=== PATIENT | female | born 1990 | race Caucasian/White ===

== ENCOUNTER 2022-01-10 13:20 | Emergency (ER) | payer OTHER, SELFPAY ==
--- NOTE | 2022-01-10 13:24 | ED.URI ---
HPI - URI/Sore Throat General Chief Complaint: Upper Respiratory Infection Stated Complaint: Cough,Congestion,Fatigue,Sore Throat Time Seen by Provider: 01/10/22 13:52 Source: patient and RN notes reviewed Mode of arrival: ambulatory Limitations: no limitations History of Present Illness HPI Narrative: 31 year old female presents with concern for sore throat that started this morning. Reports over last several days she has had fever, cough, some congestion. She swollen lymph nodes of headache. MD elicited complaint: sore throat Related Data Allergies Allergy/AdvReac Type Severity Reaction Status Date / Time Penicillins Allergy Unknown Verified 01/10/22 13:51 Review of Systems Review of Systems: CONSTITUTIONAL: Reports malaise, fever. EYES: Denies visual changes, redness, or discharge. ENT: Reports rhinorrhea, congestion, and sore throat. CARDIOVASCULAR: Denies chest pain, palpitations, or edema. RESPIRATORY: Reports cough. Denies dyspnea. GASTROINTESTINAL: Denies abdominal pain, nausea, vomiting, diarrhea SKIN: Denies rash or itching. MUSCULOSKELETAL: Denies myalgia. NEUROLOGIC: Reports headache. All systems reviewed & are unremarkable except as noted in HPI and below PMFSH Comments At time of signature, agree with nursing past medical, surgical, social and family history. There is no relevant family history pertinent to the presenting complaint Exam Narrative: GENERAL: Nontoxic-appearing and in no acute distress. HEAD: Normocephalic EYES: PERRLA, conjunctivae clear ENT: Nares clear. Mucous membranes moist. TM pearly pete with dull light reflex bilaterally; no tragal tenderness. Oropharynx erythematous without lesions. Tonsils not enlarged and without exudate, no drooling, no hoarseness, no trismus, uvula midline. NECK: Supple. No lymphadenopathy CHEST: Clear to auscultation, breath sounds equal. No wheezing, rhonchi, rales, or stridor. No respiratory distress, speaks in full sentences. HEART: Regular rate and rhythm. No murmur heard. SKIN: Warm, dry, no rash. NEURO: Alert and oriented x3. PSYCH: Normal mood and affect Course Course Emergency Course: Patient does not have type 1 IgE mediated reaction to penicillin Patient is aware of diagnosis, understands and agrees to treatment plan. Anticipatory guidance given. Patient agrees to follow-up as directed and is aware of reasons to seek care at the emergency department. Portions of this record may have been created with voice recognition software Level of Care: Express Care Visit Vital Signs Vital signs: Reviewed. MDM - URI/Sore Throat MDM Narrative Medical decision making narrative: Differential diagnosis considered: Bourgeois virus, strep pharyngitis, allergic rhinitis, upper respiratory tract infection, sinusitis, rhinosinusitis, nasopharyngitis. viral pharyngitis, otitis media, otitis externa, pneumonia, bronchitis, viral cough syndrome, viral syndrome, and influenza. Exam findings show no acute concerns or changes; patient is non-toxic appearing and is in no distress. Patient is appropriate for outpatient treatment and follow-up. Lab Data Attestation: I reviewed the patient's lab results. Critical Care Time Critical Care Time Critical Care Time: No Discharge Plan Discharge Clinical Impression: Acute streptococcal pharyngitis Patient Disposition: Home, Self-Care Condition: Stable Instructions: Antibiotic Form, Strep Throat (ED) Additional Instructions: -Take the medication as prescribed. Throw away the toothbrush after 24hours of antibiotic. -Eat and drink things that are easy to swallow, like tea or soup, or popsicles to suck on. -Oral rinses such as: Salt water gargles and/or may use topical anesthetic (eg. Chloraseptic spray) or lozenges to relieve dryness or throat pain). -Take Tylenol and ibuprofen as needed for pain and fever as directed. -Frequent hand washing or hand history instructor is one of the best ways to prevent spread of infection.
[2022-01-10 13:35] VITALS: BP 130/87; PULSE 122; RESP 18; TEMP 37.3; O2SAT 100
[2022-01-10 14:05] VITALS: PULSE 120; O2SAT 99
== END 2022-01-10 14:05 | disposition home or self-care (01) ==
PROVIDERS: Emergency Provider Nurse Practitioner
DX: J02.0 Streptococcal pharyngitis (principal); Z20.822 Contact with and (suspected) exposure to COVID-19
CPT/HCPCS: 87426; 87804; 87880; 99203; C9803; G0463

== ENCOUNTER 2024-12-30 09:30 | Emergency (ER) | payer OTHER, SELFPAY ==
--- NOTE | 2024-12-30 09:38 | ED_ITS ---
HPI - Skin/Abscess/Foreign Bdy General Chief complaint: Skin/Abscess/Foreign Body Stated complaint: Rash Time Seen by Provider: 12/30/24 09:49 Source: patient and RN notes reviewed Mode of arrival: ambulatory Limitations: no limitations History of Present Illness HPI narrative: 34-year-old female presents concern for rash on her abdomen and neck. She reports this started a week ago and has spread on her abdomen. She reports itchy papules on her neck. She denies swollen lips, swollen tongue, trouble breathing. She denies any known exacerbating factors. She denies any new medicines, personal care products or home care products. She has been using hydrocortisone without relief complaint: rash Related Data Allergies Allergy/AdvReac Type Severity Reaction Status Date / Time Penicillins Allergy Mild Rash Verified 12/30/24 09:32 Review of Systems Review of Systems: CONSTITUTIONAL: Denies malaise, chills, sweats, or fever. EYES: Denies redness, or discharge. ENT: Denies rhinorrhea, congestion, swollen lips, swollen tongue CARDIOVASCULAR: Denies chest pain, palpitations, or edema. RESPIRATORY: Denies cough or dyspnea. GASTROINTESTINAL: Denies abdominal pain, nausea, vomiting SKIN: Reports itchy rash on her right abdomen and right neck MUSCULOSKELETAL: Denies joint pain or myalgia. NEUROLOGIC: Denies headache. All systems reviewed & are unremarkable except as noted in HPI and below PMFSH Comments At time of signature, agree with nursing past medical, surgical, social and family history. There is no relevant family history pertinent to the presenting complaint Exam Narrative: GENERAL: Well-appearing, well-nourished, and in no acute distress. HEAD: Normocephalic, atraumatic. EYES: PERRLA, conjunctivae clear, and EOMI. ENT: Mucous membranes moist. Oropharynx without edema, erythema or lesions. NECK: Supple. No lymphadenopathy CHEST: Clear to auscultation. No respiratory distress. HEART: Regular rate and rhythm. SKIN: Warm, dry. Raised patch of erythema noted to the right abdomen papules noted to the right neck NEURO: Alert and oriented x3. PSYCH: Normal mood and affect Course Course Emergency Course: Patient is aware of diagnosis, understands and agrees to treatment plan. Anticipatory guidance given. Patient agrees to follow-up as directed and is aware of reasons to seek care at the emergency department. Portions of this record may have been created with voice recognition software Level of Care: Express Care Visit Vital Signs Vital signs: Reviewed. MDM - Skin/Abscess/Foreign Bdy MDM Narrative Medical decision making narrative: Does not appear at this time to be erythema multiforme, bullous, SJS, TEN; no evidence at this time to suggest RMSF, endocarditis or Lyme disease; patient looks well, nontoxic and is tolerating oral intake; no neurologic signs or symptoms; no headache, photophobia or neck pain; afebrile; appropriate for initial outpatient treatment; discussed the importance of follow-up, patient agrees; question, viral exanthema, contact dermatitis, allergic dermatitis, eczema, urticaria, shingles. No soft palate or uvula edema, no tongue, lip edema or other mucosal involvement, no respiratory compromise, no stridor, no wheezing, no wheezing, no history of syncope, no hypotension, no nausea, vomiting, or diarrhea. Instructed patient to go to nearest ER immediately for any worsening symptoms including but not limited to: fever, spreading rash, pain, sore throat, headache, dizziness, chest pain, trouble breathing, or any symptoms concerning to the patient. Critical Care Time Critical Care Time Critical Care Time: No Discharge Plan Discharge Clinical Impression: Rash Patient Disposition: Home Condition: Stable Instructions: Acute Rash (ED) Additional Instructions: Wash the area with gentle soap and water only. Take medication as directed Use skin cream as prescribed to reduce itchiness Avoid scratching when possible to prevent worsening of the condition and disruption of the skin that could lead to bacterial infection To relieve itching, place a cool washcloth or some ice over the area that itches, rather than scratching Follow up with primary care provider or seek ER if you have trouble breathing, become hoarse, or start wheezing, develop belly cramps, vomiting or feel dizzy. Patient Language: Turkmen Prescriptions: New prednisone 20 mg tablet 40 mg PO DAILY 5 Days Qty: 10 0RF triamcinolone acetonide 0.1 % cream 1 applic TOPICAL BID 7 Days Qty: 80 0RF Follow-up/Referrals: Denzel,Arline Allan MD [Primary Care Provider, Unknown] Time of Disposition: 09:56
[2024-12-30 09:39] VITALS: BP 129/87; PULSE 90; RESP 18; TEMP 36.3; O2SAT 99
--- OUTSIDE RECORDS SUMMARY | 2024-12-30 10:56 | XMS_ITS | Clinical Summary ---
Author Organization [facility] Address [address] [place] [id number] Care Team Providers Care Order Caller Name Role Phone Arline Heck MD Primary Care Provider + Allergies Active Allergy Reactions Criticality Noted Date Comments Penicillins Unknown 01/21/2024 Medications No known medications Active Problems No known active problems Immunizations Immunization Administration Dates Next Due PFIZER COVID-19 (ORIGINAL FO RMULATION, PURPLE CAP) mRNA, LNP-S, PF, 30 MCG/0.3 ML DOSE 08/07/2020,07/17/2020 Family History Medical History Relation Comments No Known Problems Brother Hypertension Father Hypertension Maternal Grandfather COPD Maternal Grandmother Smoked for 50 years before developing disease Hypertension Mother No Known Problems Son 1 No Known Problems Son 2 Relation Status Comments Brother Alive Father Alive Maternal Grandfather Maternal Grandmother Mother Alive Son 1 Alive Son 2 Alive Social History Tobacco Use Types Packs/Day Years Used Date Smoking Tobacco: Never Passive Smoke Exposure: Past Smokeless Tobacco: Never Tobacco Cessation:Counseling Given: No Comments:lived with a smoking parent for several years as a child Alcohol Use Standard Drinks/Week Comments Not Currently 0 (1 standard drink = 0.6 oz pur e alcohol) rare PHQ-2 Answer Date Recorded Patient Health Questionnaire-2 Score 0 01/21/2024 Comments Unknown Sex and Gender Information Value Date Recorded Sex Assigned at Not on file Legal Sex Female 10:01 AM CANAL BOAT OPERATOR Gender Identity Not on file Sexual Orientation Not on file Last Filed Vital Signs Vital Sign Reading Time Taken Comments Blood Pressure 133/89 01/21/2024 12:34 PM CANAL BOAT OPERATOR Pulse 105 01/21/2024 12:26 PM CANAL BOAT OPERATOR Temperature 37.5 C (99.5 F) 01/21/2024 12:26 PM CANAL BOAT OPERATOR Respiratory Rate 20 01/21/2024 12:2 6 PM CANAL BOAT OPERATOR Oxygen Saturation 97% 01/21/2024 12: 26 PM CANAL BOAT OPERATOR Inhaled Oxygen Concentration - - Weight 86.1 kg (189 lb 12.8 oz) 024 12:26 PM CANAL BOAT OPERATOR Height 160 cm (5' 3) 01/21/2024 12:26 PM CANAL BOAT OPERATOR Body Mass Index 33.62 01/21/2024 12:26 PM CANAL BOAT OPERATOR Plan of Treatment Upcoming Encounters Date Type Department Care Team (Late st Contact Info) Description 01/29/2025 7:50 AM CANAL BOAT OPERATOR Office Visit [facility] - [place] [address] [place], [place] [id number] Arline Heck MD [address] [place], [place] [id number] Health Maintenance Due Date Last Done Comments Kidney Health Evaluation 1988 Diabetes: Retinopathy Eye Exam 2006 Hepatitis C 2006 DTaP, Tdap and Td Vaccines ( 1 - Tdap) 07/28/2007 Hepatitis B Vaccines (1 of 3 - 19+ 3-dose series) 07/28/2007 Pneumococcal Vaccine: Pediatrics (0 to 5 Years) and At-Risk Patients (6 to 49 Years) (1 of 2 - PCV) 07/28/2007 HPV Vaccines (1 - 3-dose SCD M series) 07/28/2015 PHQ-2 (Physician [place]) 03/12/2024 01/21/2024 Hemoglobin A1C 07/28/2024 01/29/2024 COVID-19 Vaccine (3 - 2024-2 6 season) 2024 08/07/2020, 07/17/2020 Influenza Adult (#1) 2024 01/08/2018 Annual Physical 01/20/2025 01/21/2024 Lipid Panel 01/28/2025 01/29/2024 Cervical Cancer Screening Pa p Smear (Age 30 to 64) Every 3 Years 01/20/2027 01/21/2024 Cervical Cancer Screening Pa p with HPV Testing (Age 30 to 64) Every 5 Years 01/20/2029 01/21/2024 Cervical Cancer Screening wi th HPV 01/20/2029 Hepatitis A Vaccines Aged Out No long er eligible based on patient's age to complete this topic Meningococcal B Vaccine Aged Out No l onger eligible based on patient's age to complete this topic Meningococcal Vaccine Aged Out No bharti jelena eligible based on patient's age to complete this topic RSV Immunizations Under 20 Months Aged Out No longer eligible b ased on patient's age to complete this topic Procedures Procedure Name Priority Date/Time Associated Diagnosis Comments LIPID PANEL Routine 01/29/2024 7:44 AM CANAL BOAT OPERATOR Routine general medical examination at a health care facility HEMOGLOBIN, GLYCOSYLATED Routine 01/29/2024 7:44 AM CANAL BOAT OPERATOR Routine general medical examination at a health care facility HUMAN PAPILLOMAVIRUS, HIGH-RISK TYPES Routine 01/21/2024 12:00 PM CANAL BOAT OPERATOR CYTOPATH CERV/VAG THIN LAYER Routine 01/21/2024 12:00 AM CANAL BOAT OPERATOR from Last 3 Months or Most Recently Relevant to Health Maintenance Results * HEMOGLOBIN, GLYCOSYLATED (01/29/2024 7:44 AM CANAL BOAT OPERATOR) HGB A1C 5.3 4.5 - 6.2 % 01/29/2024 3:07 PM CANAL BOAT OPERATOR [facility] ESTIMATED AVG GLUCOSE 105 74 - 106 MG/DL 01/29/2024 3:07 PM CANAL BOAT OPERATOR [facility] 01/29/2024 7:44 AM CANAL BOAT OPERATOR us Arline Heck MD LABORATORY Final Re sult [facility] [address] [place] [address], [place] [phone] * LIPID PANEL (01/29/2024 7:44 AM CANAL BOAT OPERATOR) CHOLESTEROL 136 <200 MG/DL 01/29/2024 3:40 PM CANAL BOAT OPERATOR [facility] TRIGLYCERIDES 64 <150 MG/DL 01/29/2024 3:[address] [facility] HDL 44 >40 MG/DL 01/29/2024 3:40 PM CANAL BOAT OPERATOR [facility] LDL-C 79 <100 MG/DL 01/29/2024 3:40 PM CANAL BOAT OPERATOR [facility] VLDL CALCULATION 13 5 - 28 MG/DL 01/29/2024 3:40 PM CANAL BOAT OPERATOR [facility] CHOL/HDL RATIO 3.1 0.0 - 4.0 01/29/2024 3:40 PM CANAL BOAT OPERATOR [facility] LDL/HDL 1.8 0.41 - 2.13 01/29/2024 3:40 PM CANAL BOAT OPERATOR [facility] NON HDL CHOLESTEROL 92 <140 MG/DL 01/29/2024 3:40 PM CANAL BOAT OPERATOR [facility] 01/29/2024 7:44 AM CANAL BOAT OPERATOR us Arline Heck MD LABORATORY Final Re sult [facility] [place], [place] [address] [place] [address], [place] [phone] * HUMAN PAPILLOMAVIRUS, HIGH-RISK TYPES (01/21/2024 12:00 PM CANAL BOAT OPERATOR) SPEC DESCRIPTION CERVIX 01/23/20 24 9:19 AM CANAL BOAT OPERATOR [facility] HPV DNA HIGH RISK NEGATIVE NEGATIVE 01/23/2024 11:59 PM CANAL BOAT OPERATOR [facility] Comment:SEE CYTOLOGY REPORT 01/21/2024 12:0 0 PM CANAL BOAT OPERATOR us Arline Heck MD PATHOLOGY/CYTOLOGY ORDER JOANA Final Result [facility] [address] [place] [address], * Cytopath Cerv/Vag Thin Layer (01/21/2024 12:00 AM CANAL BOAT OPERATOR) THIN PREP PAP [facility] [address] [place] [address] Department of Pathology Pathology Report CERVICAL/VAGINAL PAP SMEAR REPORT Name: JAQUAN DAI Age: 5 1990 (Age: 33) Location: [facility] Sex: F Collected Date: 01/21/2024 Hospital #: [id number] Date Received: 01/22/2024 Date Reported: 01/24/2024 Provider: ARLINE HECK MD INTERPRETATION CERVICAL/ENDOCERVI ALEXX: SATISFACTORY FOR EVALUATION. ENDOCERVICAL/TRANS FORMATION ZONE COMPONENT PRESENT. NEGATIVE FOR INTRAEPITHELIAL LESION OR MALIGNANCY. NEGATIVE FOR HIGH RISK HPV. The FDA approved Aptima HPV assay is an in vitro nucleic acid amplification test for the qualitative detection of E6/E7 viral messenger RNA (mRNA) from 14 high-risk types of human papillomavirus (HPV) in cervical specimens. The high-risk HPV types detected by the assay include: 16,18,31,33,35,39, 45,51,52,56,58,59, 66, and 68. Electronically Signed Out By MODESTO Caldera (ASCP) CLINICAL HISTORY Z12.4 CERVICAL CANCER SCREENING SCREENING PAP ThinPrep Pap Test with HR HPV testing in patient > 30 years requested. Date of Last Menstrual Period: 12/21/2023 Menstrual Status: Regular SPECIMEN SUBMITTED CERVICAL/ENDOCERVI ALEXX Specimen Received:1 Thin Prep Vial, Image Assisted Pap (SMD) Please note: The Pap smear is not a diagnostic test. It is a screening test. Negative results on combined screening (Pap test and HPV-DNA) have a high negative predictive value (99.1-100 percent) for cervical cancer. The pap test is not effective in detecting cervical adenocarcinoma. [facility] () [facility] 01/21/2024 01/22/2024 1:0 6 PM CANAL BOAT OPERATOR Comment:CERVICAL/ENDOCERVICA L Arline Heck MD PATHOLOGY/CYTOLOGY ORDER JOANA Final Result [facility] [address] [place] [address], [place] [phone] from Last 3 Months or Most Recently Relevant to Health Maintenance Insurance Care Teams Order Caller Relationship Specialty Start Date End Date Arline Heck MD [address] [place] [id number] PCP - General FAMILY PRACTICE 01/21/24
== END 2024-12-30 10:00 | disposition home or self-care (01) ==
PROVIDERS: Emergency Provider Nurse Practitioner; PCP Student in an Organized Health Care Education/Training Program
DX: R21 Rash and other nonspecific skin eruption (principal)
CPT/HCPCS: 99213; G0463